=== PATIENT | male | born 1970 | race Caucasian/White ===

== ENCOUNTER → 2018-07-22 09:43 | Outpatient (CLI) | payer OTHER, SELFPAY ==
--- NOTE | 2018-07-22 | DI.MRI.S_ITS ---
PROCEDURE: MR SHOULDER LT WO CON INDICATIONS: BRACHIALIS TEAR TECHNIQUE: Noncontrast oblique coronal T2 fast spin echo with fat saturation, oblique sagittal T1 spin echo and T2 fast spin echo with fat saturation, axial T1 spin echo and T2 fast spin echo with fat saturation through the shoulder. COMPARISON: None. FINDINGS: Image quality: Excellent. Rotator cuff: The supraspinatus tendon is thickened with increased internal signal compatible stenosis. There is a small, low-grade, partial bursal surface tear of the supraspinatus tendon at the anterior margin of (series 10, image 13; series 12, image 8). The infraspinatus, and subscapularis tendons appear intact throughout. Sagittal images demonstrate no muscle atrophy. Bones and bursae: No bone marrow contusions or fractures. Mild acromioclavicular joint osteoarthritic degeneration. The acromion demonstrates conventional anatomy, without an os acromiale. Small amount of subacromial/subdeltoid fluid noted. Capsule and soft tissues: In the absence of intra-articular contrast, the labrum and glenohumeral ligaments appear intact. The long head of the biceps tendon demonstrates normal location and morphology. The rotator interval appears normal, without fibrosis. The coracohumeral ligament is normal in thickness. IMPRESSION: 1. Moderate supraspinatus tendinopathy. 2. Small, low-grade, partial bursal surface tear of the supraspinatus tendon. 3. Mild acromioclavicular joint osteoarthritis. 4. Mild subacromial/subdeltoid bursitis. Dictated by: Nina Mckenna MD, PhD on 07/22/2018 at 16:36 Approved by: Nina Mckenna MD, PhD on 07/22/2018 at 22:27
--- NOTE | 2018-07-22 | DI.MRI.S_ITS ---
PROCEDURE: MR ELBOW LT W CON INDICATIONS: BRACHIALIS TEAR TECHNIQUE: Noncontrast coronal proton density fast spin echo and T2 fast spin echo with fat saturation, axial and sagittal T1 spin echo and T2 fast spin echo with fat saturation through the elbow. COMPARISON: None. FINDINGS: Image quality: Diagnostic. Lateral structures: The lateral ulnar collateral ligament and radial collateral ligament both appear intact. The overlying common extensor tendon also appears normal. Medial structures: The ulnar collateral ligament appears intact. The overlying common flexor tendon appears normal. The ulnar nerve appears normal in size and signal within the cubital tunnel. Anterior structures: There is thickening and increase in identified involving the distal aspect of the biceps tendon without a full-thickness tear evident. Brachialis tendon is intact. There is a small to moderate amount of bicipitoradial bursal fluid. The median and radial neurovascular bundles appear normal; no focal muscle atrophy to suggest nerve impingement. Posterior structures: The conjoint triceps tendon from the long and lateral heads appears intact. The medial head of the triceps tendon also appears normal, with direct muscle insertion onto the olecranon. No olecranon bursal fluid. Bones: There is no acute fracture, dislocation, or suspicious osseous lesion of the elbow. No osteochondral defects are identified. There is no significant elbow joint effusion. IMPRESSION: 1. Moderate distal biceps tendinopathy with reactive fluid contained within the bicipital radial bursa. No full thickness tear of the biceps tendon. 2. Intact brachialis tendon. 3. No additional abnormalities of the elbow are appreciated. Dictated by: Ziggy Dimas M.D. on 07/22/2018 at 11:33 Approved by: Ziggy Dimas M.D. on 07/22/2018 at 11:37
--- NOTE | 2018-07-22 | DI.MRI.S_ITS ---
PROCEDURE: MR HUMERUS LT WO CON INDICATIONS: BRACHIALIS TEAR TECHNIQUE: Noncontrast coronal and sagittal T1 spin echo and STIR; axial T1 spin echo and T2 fast spin echo with fat saturation through the left humerus. COMPARISON: [facility], MR, MR SHOULDER LT WO CON, 07/22/2018, 10:08. [facility], MR, MR ELBOW LT WO CON, 07/22/2018, 10:55. FINDINGS: Image quality: Excellent. Bones: The visualized bone marrow demonstrates normal signal on all sequences. The overlying cortex appears intact. No fractures lines or intra-osseous lesions. Soft tissues: The scanned muscles demonstrate normal overall bulk and internal signal. Subcutaneous tissues appear normal as well. No soft tissue masses are present. IMPRESSION: Overall, no definite abnormality seen on this examination however, please see MR elbow and shoulder reports dated same day. Questionable minimal strain of the the triceps however this could actually be artifactual, due to inhomogenous fat suppression. Please correlate clinically. Dictated by: Kevin Vasquez M.D. on 07/22/2018 at 12:03 Approved by: Kevin Vasquez M.D. on 07/22/2018 at 12:11
== END ==
PROVIDERS: PCP Internal Medicine; Visit Provider Physician Assistant
DX: S46.812A Strain of other muscles, fascia and tendons at shoulder and upper arm level, left arm, initial encounter (principal); S46.012A Strain of muscle(s) and tendon(s) of the rotator cuff of left shoulder, initial encounter; M19.012 Primary osteoarthritis, left shoulder; M75.52 Bursitis of left shoulder
CPT/HCPCS: 73218; 73221

== ENCOUNTER → 2024-09-10 15:00 | Outpatient (CLI) | payer OTHER, SELFPAY ==
--- NOTE | 2024-09-10 15:03 | DI.RAD.S_ITS ---
PROCEDURE: XR WRIST RT 2V INDICATIONS: FOOSH Codie. Pain deformity right wrist TECHNIQUE: 3 views of the wrist were acquired. COMPARISON: [facility], CR, XR FOREARM RT 2V, 09/10/2024, 15:05. FINDINGS: Bones: There is a longitudinally oriented fracture line of the distal radius, with fracture lines also seen involving the radial aspect of the radius. No definite associated ulnar fracture can be seen. Age-appropriate bony degenerative changes are seen. Soft tissues: Soft tissue swelling is seen. The overlying casting material limits evaluation of fine detail. IMPRESSION: Distal radius fracture lines seen. Dictated by: Srikanth Alfred M.D. on 09/10/2024 at 14:37 Approved by: Srikanth Alfred M.D. on 09/10/2024 at 14:38
--- NOTE | 2024-09-10 15:03 | DI.RAD.S_ITS ---
PROCEDURE: XR FOREARM RT 2V INDICATIONS: Fall Codie. Pain deformity right wrist TECHNIQUE: 2 views of the forearm were acquired. COMPARISON: [facility], CR, XR WRIST RT 2V, 09/10/2024, 15:05. FINDINGS: Bones: Distal radius fracture lines are seen. No more proximal fracture lines are seen. Soft tissues: Distal soft tissue swelling is seen. The overlying casting material limits evaluation of fine detail. IMPRESSION: Distal radius fractures are seen. Dictated by: Srikanth Alfred M.D. on 09/10/2024 at 14:38 Approved by: Srikanth Alfred M.D. on 09/10/2024 at 14:39
== END ==
PROVIDERS: PCP Internal Medicine; Referring Provider Physician Assistant Medical; Visit Provider Physician Assistant Medical
DX: S52.501A Unspecified fracture of the lower end of right radius, initial encounter for closed fracture (principal); M21.931 Unspecified acquired deformity of right forearm; W19.XXXA Unspecified fall, initial encounter
CPT/HCPCS: 73090; 73100

== ENCOUNTER → 2024-09-23 15:13 | Outpatient (CLI) | payer OTHER, SELFPAY ==
--- NOTE | 2024-09-23 15:14 | DI.CT.S_ITS ---
PROCEDURE: CT UE RT WO CON INDICATIONS: RIGHT WRIST PAIN / EVAL RIGHT WRIST FRACTURE TECHNIQUE: Noncontrast 1 mm axial sections acquired through the carpal bones, with coronal and sagittal reformats. COMPARISON: [facility] [place], CR, XR WRIST 3+ VIEWS RIGHT, 09/19/2024, 10:56. FINDINGS: Image quality: Excellent. Bones: As seen on previous radiograph, there is a slightly comminuted longitudinal fracture involving distal radius with fracture line extending to radiocarpal joint space and up to 1 mm diastasis at fracture site. Fracture line is seen extending to the Alona's tubercle. No other fracture or dislocation. No suspicious intraosseous lesion. Soft tissues: There is mild soft tissue swelling around distal radial fracture site. Small radiocarpal joint effusion is seen. No calcified intra-articular loose bodies. No soft tissue mass or drainable fluid collection. No gross full-thickness wrist tendon rupture. IMPRESSION: 1. Acute slightly comminuted and minimally displaced intra-articular fracture involving distal radius as described above. No other fracture or dislocation. No suspicious bony lesions. 2. Mild soft tissue swelling adjacent to distal radial fracture site. No significant joint effusion or calcified intra-articular loose bodies. No full-thickness tendon rupture. Dictated by: Vic Barnes M.D. on 09/23/2024 at 18:02 Approved by: Vic Barnes M.D. on 09/23/2024 at 18:07
== END ==
PROVIDERS: PCP Internal Medicine; Referring Provider Physician Assistant Surgical; Visit Provider Physician Assistant Surgical
DX: S52.571A Other intraarticular fracture of lower end of right radius, initial encounter for closed fracture (principal); M25.531 Pain in right wrist; M79.89 Other specified soft tissue disorders
CPT/HCPCS: 73200